=== PATIENT | male | born 1985 | race Caucasian/White ===

== ENCOUNTER 2021-08-02 07:34 | Outpatient (CLI) | payer OTHER | END 2021-08-02 07:35 | disposition home or self-care (01) | LOC: NM 07:34 | PROVIDERS: ATTEND Otolaryngology Otolaryngic Allergy | DX: E21.3 Hyperparathyroidism, unspecified (principal); E83.52 Hypercalcemia; E07.89 Other specified disorders of thyroid | CPT/HCPCS: 76536; 78072; A9500 ==